=== PATIENT | male | born 1980 | race Caucasian/White ===

== ENCOUNTER 2016-07-15 19:55 | Emergency (ER) | payer MEDICARE, MEDICAID ==
[2016-07-15 20:02] VITALS: BP 154/78
[2016-07-15] MEDS ORDERED: Ibuprofen TAB* 800 MG PO ONE (20:28)
[2016-07-15] MEDS ORDERED: Cyclobenzaprine TAB* 10 MG PO ONE (20:28)
--- NOTE | 2016-07-15 20:40 | ED ---
Back Pain - HPI Summary HPI Summary: Patient arrives to ED with CC of low back pain since this morning. He denies known injury. He states he is able to walk, but must be flexed at the hips. Pain radiates to the L hamstring, but denies radiation to the feet. Denies numbness or tingling. Denies allergies, bladder or bowel dysfunction or drug use. Patient takes abilify. Denies chronic back problems. States this has never happened to him before and is worse upon rising from a seated position. - History of Current Complaint Chief Complaint: EDBackInjuryPain Stated Complaint: BACK PAIN Time Seen by Provider: 07/15/16 20:07 Hx Obtained From: Patient Onset/Duration: Sudden Onset Onset/Duration: Started Hours Ago Timing: Constant Back Pain Location: Is Discrete @ - lower back Severity Initially: Moderate Severity Currently: Moderate Pain Intensity: 4 Pain Scale Used: 0-10 Numeric Character: Sharp, Aching Aggravating Symptom(s): Movement, Lifting, Bending, Walking Alleviating Symptom(s): Rest, Position - Risk Factors AAA Risk Factors: Negative TAD Risk Factors: Negative Cauda Equina Risk Factors: Negative - Allergies/Home Medications Allergies/Adverse Reactions: Allergies Allergy/AdvReac Type Severity Reaction Status Date / Time Quetiapine [From Seroquel] Allergy Severe Shortness Verified 02/04/13 00:34 of Breath Ziprasidone [From Geodon] Allergy Severe Shortness Verified 02/04/13 00:34 of Breath Valproic Acid [From Depakote] Allergy Intermediate Shortness Verified 02/04/13 00:34 of Breath PMH/Surg Hx/FS Hx/Imm Hx Previously Healthy: Yes Sensory History: Reports: Hx Contacts or Glasses Opthamlomology History: Reports: Hx Contacts or Glasses Neurological History: Reports: Hx Headaches Psychiatric History: Reports: Hx Anxiety, Hx of Violent Episodes Against Others Denies: Hx Eating Disorder Infectious Disease History: No Infectious Disease History: Denies: Hx Clostridium Difficile, Hx Hepatitis, Hx Human Immunodeficiency Virus (HIV), Hx of Known/Suspected MRSA, Hx Shingles, Hx Tuberculosis, Hx Known/ Suspected VRE, Hx Known/Suspected VRSA, History Other Infectious Disease, Traveled Outside the [place] in Last 30 Days - Social History Occupation: Student Lives: Alone Hx Substance Use: Yes Substance Use Type: Reports: Marijuana Substance Use Comment - Amount & Last Used: a month ago Hx Tobacco Use: Yes Smoking Status (MU): Heavy Every Day Tobacco Smoker Review of Systems Constitutional: Negative Eyes: Negative Cardiovascular: Negative Respiratory: Negative Genitourinary: Negative Positive: no symptoms reported, see HPI Musculoskeletal: Negative Positive: Arthralgia - low back pain with radiation to L hamsring Skin: Negative Neurological: Negative Psychological: Normal All Other Systems Reviewed And Are Negative: Yes Physical Exam Triage Information Reviewed: Yes Vital Signs On Initial Exam: Initial Vitals Temp Pulse Resp BP Pulse Ox 99.2 F 90 16 154/78 98 07/15/16 19:59 07/15/16 19:59 07/15/16 19:59 07/15/16 19:59 07/15/16 19:59 Vital Signs Reviewed: Yes Appearance: Positive: Well-Appearing, No Pain Distress, Well-Nourished Skin: Positive: Warm, Skin Color Reflects Adequate Perfusion Head/Face: Positive: Normal Head/Face Inspection Eyes: Positive: EOMI, ELIZABETH, Conjunctiva Clear Neck: Positive: Supple, No Lymphadenopathy Respiratory/Lung Sounds: Positive: Clear to Auscultation, Breath Sounds Present Cardiovascular: Positive: Normal, RRR Musculoskeletal: Positive: Limited @, Pain @ - L2-L4., Other - Thorough physical exam was performed, focusing on thoracic and lumbar special tests and ROM. Physical exam was limited. Limited ROM. Gait abnormal. Patient is flexed at the hip in 90 degree angle. Flip Test positive. Straight leg raise positive. Negative Babinksi. Hip flexion and extension, knee extension, dorsiflexion, great toe extension and plantar flexion intact. Rotating at hips limited d/t pain. Nerve roots L4-S2 reflexes intact. L1-S2 nerve root sensory intact. No saddle anesthesia. No obvious deformities or portrusions. No ecchymosis or color changes. Pulses intact in lower extremities bilaterally. Neurological: Positive: Sensory/Motor Intact, Speech Normal Psychiatric: Positive: Normal Diagnostics - Vital Signs Vital Signs Temp Pulse Resp BP Pulse Ox 07/15/16 19:59 99.2 F 90 16 154/78 98 - Laboratory Lab Statement: Any lab studies that have been ordered have been reviewed, and results considered in the medical decision making process. Back Pain Course/Dx - Course Course Of Treatment: Patient given orthopedic follow up in 5-7 days. Encouraged Ibuprofen 600mg three times daily with meals for pain. Patient given rx for flexeril. Return precautions given. Educated patient regarding back injuries and healing time and the need for further imaging if discomfort is present for > 6 weeks. - Diagnoses Differential Diagnosis/HQI/PQRI: Positive: Compressive Cord Syndrome, Herniated Disc, Strain, Sprain Provider Diagnoses: Low back pain Discharge - Discharge Plan Condition: Stable Disposition: HOME Prescriptions: Cyclobenzaprine TAB* [Flexeril TAB*] 10 mg PO TID #15 tab MDD 3 Ibuprofen TAB* [Motrin TAB* 800 MG] 800 mg PO Q6H #20 tab MDD 4 Patient Education Materials: Acute Low Back Pain (ED), Lumbar Radiculopathy (ED ) Referrals: No Primary Care Phys,NOPCP [Primary Care Provider] - Additional Instructions: Dx. Lower back pain/lumbar radiculopathy Flexeril: This medication is a muscle relaxant and can help relieve muscle spasms, muscle strain, or pain sensations. Flexeril can cause side effects that may impair your thinking or reactions. Be careful if you drive or do anything that requires you to be awake and alert. Avoid drinking alcohol, which can increase some of the side effects of Flexeril. Ibuprofen 600mg three times daily with meals for discomfort. Return to ED if symptoms worsen or fail to improve, notice worsening swelling, warmth or redness around the joint, develop fever, or pain is uncontrolled with OTC medications. Moist heat to the area for comfort. Warm showers or baths may improve symptoms. It is important to remain mobile as tolerated to prevent stiffening of the joints and delay healing. Follow up with your PCP. If symptoms remain for > 6 weeks, please seek special medical attention from an orthopedic physician.
== END 2016-07-15 20:55 | disposition home or self-care (01) ==
LOC: ED 19:55
DX: M54.5 Low back pain (principal); F17.200 Nicotine dependence, unspecified, uncomplicated
CPT/HCPCS: 99282; A9270-GY

== ENCOUNTER 2018-06-09 15:05 | Inpatient (IN) | payer MEDICARE, MEDICAID ==
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
[2018-06-09 15:45] LABS: ABS Basophils 0 10^3/ul (0-0.2); ABS Eosinophils 0.2 10^3/ul (0-0.6); ABS Lymphocytes 2.2 10^3/ul (1.0-4.8); ABS Monocytes 0.7 10^3/ul (0-0.8); ABS Neutrophils 10.2 10^3/ul (1.5-7.7); ABS Nucleated RBC 0 10^3/ul; Eosinophil % 1.2 %; Hematocrit 48 % (42-52); Hemoglobin 16.2 g/dl (14.0-18.0); Lymphocyte % 16.5 %; Mean Corpuscular HGB Conc 34 g/dl (31-36); Mean Corpuscular Hemoglobin 30 pg (27-31); Mean Corpuscular Volume 89 fL (80-94); Mean Platelet Volume 7.5 fL (7.4-10.4); Nucleated Red Blood Cells % 0; Platelet Count 277 10^3/ul (150-450); Red Blood Count 5.36 10^6/ul (4.00-5.40); Red Cell Distribution Width 13 % (10.5-15); White Blood Count 13.3 10^3/ul (3.5-10.8)
[2018-06-09 16:00] LABS: ALT 13 U/L (7-52); AST 15 U/L (13-39); Albumin/Globulin Ratio 1.5 (1-3); Alkaline Phosphatase 64 U/L (34-104); Anion Gap 10 mmol/L (2-11); BUN/Creatinine Ratio 10.1 (8-20); Blood Urea Nitrogen 10 mg/dL (6-24); CO2 Carbon Dioxide 24 mmol/L (22-32); Calcium 9.8 mg/dL (8.6-10.3); Chloride 103 mmol/L (101-111); EGFR African American 102.9 (>60); EGFR Non-African American 85.1 (>60); Globulin 3.3 g/dL (2-4); Glucose 108 mg/dL (70-100); Potassium 3.9 mmol/L (3.5-5.0); Sodium 137 mmol/L (135-145); Total Protein 8.3 g/dL (6.4-8.9)
[2018-06-09 16:06] LABS: Acetaminophen < 15 mcg/mL; Alcohol < 10 mg/dL (<10); Salicylate < 2.50 mg/dL (<30)
[2018-06-09 16:20] LABS: TSH (Thyroid Stimulating Horm) 0.41 mcIU/mL (0.34-5.60)
[2018-06-09] MEDS ORDERED: LORazepam TAB(*) 1 MG PO ONE (18:07)
[2018-06-09] MEDS ORDERED: OLANzapine TAB* 5 MG PO PRN (22:01)
[2018-06-10] MEDS: Acetaminophen TAB* 325 MG PO PRN ×2 (07:00→21:38)
[2018-06-10] MEDS: Vitamin THERAPEUTIC TAB PO SCH (09:47)
[2018-06-10] MEDS ORDERED: Mouth Piece, Nicotine* 1 EACH CARTRIDGE INH SCH (16:26)
[2018-06-10] MEDS: Nicotine GUM* 2 MG PO PRN (16:52)
[2018-06-10] MEDS: Nicotine Inhaler* 10 MG AMP INH PRN (16:53)
[2018-06-10] MEDS: ARIPiprazole TAB* 5 MG PO SCH (17:38)
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
[2018-06-10] MEDS: Nicotine Patch Removal NOTE PATCH OFF SCH (20:11)
[2018-06-10] MEDS ORDERED: OLANzapine TAB* 10 MG PO SCH (21:00)
[2018-06-10] MEDS: LORazepam TAB(*) 0.5 MG PO PRN (21:38)
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
[2018-06-11] MEDS: ARIPiprazole TAB* 5 MG PO SCH (08:44)
[2018-06-11] MEDS: Vitamin THERAPEUTIC TAB PO SCH (08:44)
[2018-06-11] MEDS: Nicotine PATCH 14 MG/24 HR* PATCH TRANSDERM SCH (08:48)
[2018-06-11] MEDS: Acetaminophen TAB* 325 MG PO PRN (11:52)
[2018-06-11] MEDS: LORazepam TAB(*) 0.5 MG PO PRN ×2 (11:53→21:09)
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
[2018-06-11] MEDS ORDERED: ARIPiprazole TAB* 5 MG PO SCH (21:00)
[2018-06-11] MEDS: Al Hydrox/Mg Hydrox/Simet LIQ* 30 ML UDC PO PRN (21:07)
[2018-06-11] MEDS: Ibuprofen TAB* 600 MG PO PRN (21:08)
[2018-06-11] MEDS: Nicotine Patch Removal NOTE PATCH OFF SCH (21:10)
[2018-06-12] MEDS: Nicotine PATCH 14 MG/24 HR* PATCH TRANSDERM SCH (08:49)
[2018-06-12] MEDS: Vitamin THERAPEUTIC TAB PO SCH (08:49)
--- NOTE | 2018-06-12 16:08 | PN ---
Subjective - Subjective Date of Service: 06/12/18 Service Type: 59388 Hosp care 15 min low complexity Subjective: Tima has tried many multiple medications including quetiapine, ziprasidone, and valproic acid (all of which he is allergic to according to the EHR). He had taken Abilify 400 mg [id number] for a few years, but he states it never freed him from feeling tormented by racing thoughts and dysphoria. He continues to avoid identifying any hallucinations in front of me, but the reports continue that he is responding to internal stimuli and that he endorses auditory and visual hallucinations to others. Tima stated earlier in the day that he'd like to try mirtazapine because "Abilify wasn't doing anything." Rather, we're trying Latuda 80 mg. Objective - Appearance Appearance: Well Developed/Nourished, Healthy Appearing Dysmorphic Features: No Hygiene: Normal Grooming: Disheveled - Behavior Psychomotor Activities: Normal Exhibits Abnormal Movement: No - Attitude and Relatedness Attitude and Relatedness: Superficially Cooperative Eye Contact: Fair - Speech Quality: Unpressured Latencies: Normal Quantity: Terse - Mood Patient's Decription of Mood: "Fine" - Affect Observed Affect: Unvariable Affect Consistent with: Dysphoria - Thought Process Patient's Thought Process: Coherent, Circumstantial Thought Content: Yes Paranoid Ideation, No Passive Wish, No Suicidal Planning, No Homicidal Ideation - Sensorium Experiencing Hallucinations: No, Sensorium is Clear Type of Hallucinations: Visual: Yes, Auditory: Yes, Command: No - Level of Consciousness Level of Consciousness: Alert Orientation: Yes Intact, Yes Orientated to Time, Yes Orientated to Place, Yes Orientated to Person - Impulse Control Impulse Control: Impaired - Insight and Judgement Insight and Judgement: Poor - Group Participation Particating in Group Activities: Yes - Medication Management Medication Management Adherence: Yes Assessment - Assessment Merits Inpatient Hospitalization: For Immediate Safety Inpatient DSM-V Dx: F25.9 Clinical Impression: Tima is a 37-year-old white male who is known to this unit to have psychosis and has recently been sent from the community due to auditory and visual hallucinations as well as command hallucinations that are telling him to end his life by cutting his own throat with a razor. Plan - Plan Treatment Plan: Name: TIMA STEVENS Birthdate: 1980 [id number] Continued Medication Management: Different Medication Medications: Current Medications Acetaminophen (Tylenol Tab*) 650 mg PO Q4H PRN PRN Reason: PAIN or TEMP > 101 F Last Admin: 06/11/18 11:52 Dose: 650 mg Al Hydrox/Mg Hydrox/Simethicone (Maalox Plus*) 30 ml PO Q4H PRN PRN Reason: INDIGESTION Last Admin: 06/11/18 21:07 Dose: 30 ml Device (Nicotine Mouth Piece*) 1 each INH .[facility] Ibuprofen (Motrin Tab*) 600 mg PO Q6H PRN PRN Reason: PAIN Last Admin: 06/11/18 21:08 Dose: 600 mg Lorazepam (Ativan Tab(*)) 0.5 mg PO Q6H PRN PRN Reason: ANXIETY Last Admin: 06/11/18 21:09 Dose: 0.5 mg Lurasidone HCl (Latuda) 80 mg PO 1700 [facility] Multivitamins (Theragran Tab*) 1 tab PO DAILY [facility] Last Admin: 06/12/18 08:49 Dose: 1 tab Nicotine (Nicotine Inhaler*) 10 mg INH Q2H PRN PRN Reason: CRAVING Last Admin: 06/10/18 16:53 Dose: 10 mg Nicotine (Nicotine Patch 14 Mg/24 Hr*) 1 patch TRANSDERM DAILY [facility] Last Admin: 06/12/18 08:49 Dose: 1 patch Nicotine Polacrilex (Nicotine Gum*) 2 mg PO Q2H PRN PRN Reason: CRAVING Last Admin: 06/10/18 16:52 Dose: 2 mg Olanzapine (Zyprexa Tab*) 5 mg PO Q6H PRN PRN Reason: AGITATION Pharmacy Profile Note (Nicotine Patch Removal Note*) 1 note PATCH OFF 2100 [facility] Last Admin: 06/11/18 21:10 Dose: 1 note - Discharge Plan Discharge Plan: Outpatient Follow Up Outpatient Program: [facility] Additional Comments: Tima's Abilify will be moved to bedtime to avoid daytime sedation. Continue to monitor behavior and assess for response to internal stimuli 06/12/18: Abilify to be d/c. Replace with Latuda, which is new to Tima. Although an injectable would be preferable, he is knowledgeable enough to understand the side effect profile and reject aspects of Invega.
[2018-06-12] MEDS: Lurasidone(*) 80 MG TAB PO SCH (17:46)
[2018-06-12] MEDS: Nicotine GUM* 2 MG PO PRN (18:52)
[2018-06-12] MEDS: Nicotine Inhaler* 10 MG AMP INH PRN (18:52)
[2018-06-12] MEDS ORDERED: ARIPiprazole TAB* 5 MG PO SCH (21:00)
[2018-06-12] MEDS: Nicotine Patch Removal NOTE PATCH OFF SCH (23:07)
[2018-06-13] MEDS: Nicotine PATCH 14 MG/24 HR* PATCH TRANSDERM SCH (09:40)
[2018-06-13] MEDS: Acetaminophen TAB* 325 MG PO PRN (09:40)
[2018-06-13] MEDS: Vitamin THERAPEUTIC TAB PO SCH (09:40)
--- NOTE | 2018-06-13 10:35 | PN ---
Subjective - Subjective Date of Service: 06/13/18 Service Type: 99124 Hosp care 15 min low complexity Subjective: Patient observed responding to internal stimuli consistently by staff. During conversation with news writer, he looks about and laughs incongruent to topic. Patient reports poor sleep due to nightmares. He politely requests a soda at lunch, mentioning that peer had one yesterday. Patient denies further requests or concerns. Objective - Appearance Appearance: Well Developed/Nourished Dysmorphic Features: No Hygiene: Normal Grooming: Well Kept - Behavior Psychomotor Activities: Normal Exhibits Abnormal Movement: No - Attitude and Relatedness Attitude and Relatedness: Psychotically Related Eye Contact: Good - Speech Quality: Unpressured Latencies: Long Quantity: Appropriate - Mood Patient's Decription of Mood: "Good" - Affect Observed Affect: Good Affect Consistent with: Euthymia - Thought Process Patient's Thought Process: Disorganized Thought Content: No Passive Wish, No Suicidal Planning, No Homicidal Ideation, No Paranoid Ideation - Sensorium Experiencing Hallucinations: Yes Type of Hallucinations: Visual: Yes, Auditory: Yes, Command: No - Level of Consciousness Level of Consciousness: Alert Orientation: Yes Intact, Yes Orientated to Time, Yes Orientated to Place, Yes Orientated to Person - Impulse Control Impulse Control: Intact - in this setting - Insight and Judgement Insight and Judgement: Impaired - Group Participation Particating in Group Activities: Yes - Medication Management Medication Management Adherence: Yes Assessment - Assessment Merits Inpatient Hospitalization: For Immediate Safety, For Stabilization Inpatient DSM-V Dx: F25.9 Clinical Impression: Tima is a 37-year-old white male who is known to this unit to have psychosis and has recently been sent from the community due to auditory and visual hallucinations as well as command hallucinations that are telling him to end his life by cutting his own throat with a razor. 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 Patient is unable to care for self; meets criteria for immediate safety and stabilization. Plan - Plan Treatment Plan: Name: TIMA STEVENS Birthdate: 1980 [id number] continue acute intensive psychiatric treatment. may decrease to q30min obs and allow computer use per RN discretion. continue current medications. discharge planning to include family and outpatient providers. Continued Medication Management: Different Medication Medications: Current Medications Acetaminophen (Tylenol Tab*) 650 mg PO Q4H PRN PRN Reason: PAIN or TEMP > 101 F Last Admin: 06/13/18 09:40 Dose: 650 mg Al Hydrox/Mg Hydrox/Simethicone (Maalox Plus*) 30 ml PO Q4H PRN PRN Reason: INDIGESTION Last Admin: 06/11/18 21:07 Dose: 30 ml Device (Nicotine Mouth Piece*) 1 each INH .[facility] Ibuprofen (Motrin Tab*) 600 mg PO Q6H PRN PRN Reason: PAIN Last Admin: 06/11/18 21:08 Dose: 600 mg Lorazepam (Ativan Tab(*)) 0.5 mg PO Q6H PRN PRN Reason: ANXIETY Last Admin: 06/11/18 21:09 Dose: 0.5 mg Lurasidone HCl (Latuda) 80 mg PO 1700 [facility] Last Admin: 06/12/18 17:46 Dose: 80 mg Multivitamins (Theragran Tab*) 1 tab PO DAILY [facility] Last Admin: 06/13/18 09:40 Dose: 1 tab Nicotine (Nicotine Inhaler*) 10 mg INH Q2H PRN PRN Reason: CRAVING Last Admin: 06/12/18 18:52 Dose: 10 mg Nicotine (Nicotine Patch 14 Mg/24 Hr*) 1 patch TRANSDERM DAILY [facility] Last Admin: 06/13/18 09:40 Dose: 1 patch Nicotine Polacrilex (Nicotine Gum*) 2 mg PO Q2H PRN PRN Reason: CRAVING Last Admin: 06/12/18 18:52 Dose: 2 mg Olanzapine (Zyprexa Tab*) 5 mg PO Q6H PRN PRN Reason: AGITATION Pharmacy Profile Note (Nicotine Patch Removal Note*) 1 note PATCH OFF 2100 [facility] Last Admin: 06/12/18 23:07 Dose: 1 note - Discharge Plan Discharge Plan: Inpatient Hospitalization
[2018-06-13] MEDS: Al Hydrox/Mg Hydrox/Simet LIQ* 30 ML UDC PO PRN ×2 (10:42→12:57)
[2018-06-13] MEDS: Ibuprofen TAB* 600 MG PO PRN (10:42)
--- NOTE | 2018-06-13 11:40 | PN ---
[facility]: Group Therapy Note - Service Type Service Type: [id number] Group Psychotherapy - Cognitive Behavioral Group Therapy ( CBT):Patient attended CBT programming this morning and presented with flat affect that did not vary with discussion. Although responsive to direct prompts to respond to questions, patient did not engage in spontaneous conversation.
[2018-06-13] MEDS: Lurasidone(*) 80 MG TAB PO SCH (17:42)
[2018-06-13] MEDS: Nicotine Patch Removal NOTE PATCH OFF SCH (21:55)
[2018-06-14] MEDS: Nicotine PATCH 14 MG/24 HR* PATCH TRANSDERM SCH (08:23)
[2018-06-14] MEDS: Vitamin THERAPEUTIC TAB PO SCH (08:24)
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
[2018-06-14] MEDS: Lurasidone(*) 80 MG TAB PO SCH (16:37)
[2018-06-14] MEDS: Nicotine Patch Removal NOTE PATCH OFF SCH (20:47)
[2018-06-15] MEDS: LORazepam TAB(*) 0.5 MG PO PRN (00:55)
[2018-06-15] MEDS: Vitamin THERAPEUTIC TAB PO SCH (07:53)
[2018-06-15] MEDS: Nicotine PATCH 14 MG/24 HR* PATCH TRANSDERM SCH (07:53)
[2018-06-15] MEDS: Lurasidone(*) 80 MG TAB PO SCH (16:42)
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
[2018-06-15 21:45] LABS: Barbiturates Urine Screen None Detected (None Detect); Benzodiazepine Urine Screen None Detected (None Detect); Urine Cannabinoids Screen Presumptive Positive (None Detect)
[2018-06-15] MEDS: Nicotine Patch Removal NOTE PATCH OFF SCH (22:57)
[2018-06-16] MEDS: Vitamin THERAPEUTIC TAB PO SCH (08:50)
[2018-06-16] MEDS: Nicotine PATCH 14 MG/24 HR* PATCH TRANSDERM SCH (08:50)
[2018-06-16] MEDS: Al Hydrox/Mg Hydrox/Simet LIQ* 30 ML UDC PO PRN (12:03)
[2018-06-16] MEDS: Lurasidone(*) 120 MG TAB PO SCH (17:12)
[2018-06-16] MEDS: Nicotine Patch Removal NOTE PATCH OFF SCH (21:57)
[2018-06-17] MEDS: Acetaminophen TAB* 325 MG PO PRN (01:57)
[2018-06-17] MEDS: Vitamin THERAPEUTIC TAB PO SCH (07:48)
[2018-06-17] MEDS: Nicotine PATCH 14 MG/24 HR* PATCH TRANSDERM SCH (07:48)
[2018-06-17] MEDS: Al Hydrox/Mg Hydrox/Simet LIQ* 30 ML UDC PO PRN (10:21)
[2018-06-17] MEDS: Lurasidone(*) 120 MG TAB PO SCH (17:16)
[2018-06-17] MEDS: Nicotine Patch Removal NOTE PATCH OFF SCH (21:18)
[2018-06-18 08:34] VITALS: BP 125/82
[2018-06-18] MEDS: Nicotine PATCH 14 MG/24 HR* PATCH TRANSDERM SCH (09:49)
[2018-06-18] MEDS: Vitamin THERAPEUTIC TAB PO SCH (09:50)
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
== END 2018-06-18 14:34 | disposition home or self-care (01) | DRG 885 ==
LOC: ED 15:05 → BSU 20:05
PROVIDERS: ADMIT Psychiatry & Neurology Psychiatry; ATTEND Psychiatry & Neurology Psychiatry
DX: F20.9 Schizophrenia, unspecified (principal); R45.851 Suicidal ideations; F17.210 Nicotine dependence, cigarettes, uncomplicated; F12.20 Cannabis dependence, uncomplicated; R51 Headache; F10.10 Alcohol abuse, uncomplicated; Y90.0 Blood alcohol level of less than 20 mg/100 ml; Z79.899 Other long term (current) drug therapy
CPT/HCPCS: 36415; 70450; 80053; 80307; 80320; 80329; 84443; 85025; 90853; 99222; 99231; 99232; 99238; 99284; A9270-GY; G0480

== ENCOUNTER 2018-10-14 00:33 | Emergency (ER) | payer MEDICARE, MEDICAID ==
[2018-10-14] MEDS ORDERED: Bupivacaine 0.5% W/EPI SDV* 30 ML VIAL INJ ONE (01:42)
[2018-10-14] MEDS ORDERED: Clindamycin CAP* 150 MG PO ONE (01:42)
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
[2018-10-14] MEDS ORDERED: Ibuprofen TAB* 600 MG PO ONE (02:13)
[2018-10-14 02:35] VITALS: BP 145/92
== END 2018-10-14 02:34 | disposition home or self-care (01) ==
LOC: ED 00:33
DX: K04.7 Periapical abscess without sinus (principal); R22.0 Localized swelling, mass and lump, head; K08.89 Other specified disorders of teeth and supporting structures; R51 Headache; F17.210 Nicotine dependence, cigarettes, uncomplicated
CPT/HCPCS: 99282; A9270-GY